=== PATIENT | female | born 1950 | race Two or more races ===

== ENCOUNTER 2021-01-08 11:47 | Outpatient (REF) | payer MEDICARE, SELFPAY ==
[2021-01-08 13:23] LABS: COVID-19 Test Negative (Negative)
== END 2021-01-08 11:48 | disposition home or self-care (01) ==
LOC: HO.LAB 11:47
PROVIDERS: Visit Provider Internal Medicine
DX: Z20.822 Contact with and (suspected) exposure to COVID-19 (principal)
CPT/HCPCS: 36415; 87635; C9803